=== PATIENT | male | born 1940 | race Caucasian/White ===

== ENCOUNTER 2018-11-13 02:41 | Emergency (ER) | payer MEDICARE ==
[~2018-11-13] VITALS: Ht 180.3 cm; Wt 77.2 kg
[~2018-11-13 02:41] MED LIST: ALLOPURINOL300 MG PO; ASPIRIN81 MG PO; ATORVASTATIN CA80 MG PO; CLOPIDOGREL75 MG PO; LISINOPRIL5 MG PO; METOPROL TAR25 MG PO; [UNRECOGNIZED DRUG - OTHER] PO
[2018-11-13 03:15] LABS: HEMATOCRIT 39.7 % (39.0-50.0); HEMOGLOBIN 13.5 g/dl (14.0-18.0); IMMATURE GRANULOCYTES 0.4 % (0.0-5.0); MEAN CELL VOLUME 89.6 fL CALC (80.0-100.0); MEAN CORPUSCULAR HGB 30.5 pG CALC (26.0-32.0); NEUT# 14.88 thou/uL (1.82-7.42); RED BLOOD COUNT 4.43 mill/uL (4.70-6.10); RED CELL DISTRI WIDTH 13.8 % (11.5-15.5)
[2018-11-13 03:31] LABS: ALBUMIN 4.1 g/dL (3.2-5.0); ALKALINE PHOSPHATASE 125 u/l (38-126); ANION GAP 14 (6-22 (CALC)); BILIRUBIN, TOTAL 1.4 mg/dL (0.0-1.4); BUN 18 mg/dL (8-23); BUN/CREATININE RATIO 19 (12-20 (CALC)); CARBON DIOXIDE 26 mmol/l (22-30); CHLORIDE 102 mmol/l (95-108); CREATININE 0.9 mg/dL (0.7-1.3); GFR > 60 ML/MIN (>=60 (CALC)); GFR FOR AFR.AMER. > 60 ML/MIN (>=60 (CALC)); POTASSIUM 4.3 mmol/l (3.5-5.1); SGOT/AST 24 u/l (19-48); SODIUM 138 mmol/l (137-146); TOTAL PROTEIN 6.6 g/dL (6.3-8.2)
[2018-11-13 03:44] LABS: MYOGLOBIN 34 ng/mL (0 - 121)
[2018-11-13 04:59] LABS: URINE BILIRUBIN - DIPSTICK NEGATIVE (NEGATIVE); URINE BLOOD DIPSTICK NEGATIVE (NEGATIVE); URINE COLOR YELLOW; URINE GLUCOSE - DIPSTICK NEGATIVE (NEGATIVE); URINE KETONE NEGATIVE (NEGATIVE); URINE LEUK ESTERASE NEGATIVE (NEGATIVE); URINE NITRITE - DIPSTICK NEGATIVE (Negative); URINE PH 5.5 (4.5-8.0); URINE PROTEIN - DIPSTICK NEGATIVE (NEG-TRACE); URINE SPECIFIC GRAVITY 1.025; URINE UROBILINOGEN - DIPSTICK 0.2 E.U./dL (0.2)
[2018-11-13] MEDS ORDERED: CIPROFLOXACN500 MG PO (05:33)
[2018-11-13 06:00] VITALS: BP 114/59
== END 2018-11-13 06:00 | disposition home or self-care (01) ==
LOC: ED 02:41
PROVIDERS: Emergency Medicine
DX: D72.829 Elevated white blood cell count, unspecified (principal); R42 Dizziness and giddiness; I10 Essential (primary) hypertension; I25.10 Atherosclerotic heart disease of native coronary artery without angina pectoris; Z95.5 Presence of coronary angioplasty implant and graft
CPT/HCPCS: J1956

== ENCOUNTER 2021-10-01 00:55 | Emergency (ER) | payer MEDICARE ==
[~2021-10-01] VITALS: Ht 180.3 cm; Wt 88.0 kg
[~2021-10-01 00:55] MED LIST changes: +CIPROFLOXACN500 MG PO
[2021-10-01] MEDS ORDERED: VALSARTAN160 MG PO (01:21)
[2021-10-01] MEDS ORDERED: NORVASC2.5 M1 PO (01:21)
[2021-10-01 01:27] LABS: HEMATOCRIT 41.7 % (39.0-50.0); HEMOGLOBIN 14.2 g/dl (14.0-18.0); IMMATURE GRANULOCYTES 0.1 % (0.0-5.0); MEAN CELL VOLUME 88.9 fL CALC (80.0-100.0); MEAN CORPUSCULAR HGB 30.3 pG CALC (26.0-32.0); MEAN CORPUSCULAR HGB CONC 34.1 g/dL CAL (32.0-36.0); NEUT# 5.69 thou/uL (1.82-7.42); RED BLOOD COUNT 4.69 mill/uL (4.70-6.10); RED CELL DISTRI WIDTH 14.3 % (11.5-15.5)
[2021-10-01 01:44] LABS: ALBUMIN 4.3 g/dL (3.2-5.0); ALKALINE PHOSPHATASE 132 u/l (38-126); AMYLASE 77 u/l (30-110); ANION GAP 13 (6-22 (CALC)); BILIRUBIN, TOTAL 0.7 mg/dL (0.0-1.4); BUN 18 mg/dL (8-23); BUN/CREATININE RATIO 19 (12-20 (CALC)); CARBON DIOXIDE 27 mmol/l (22-30); CHLORIDE 100 mmol/l (95-108); GFR > 60 ML/MIN (>=60 (CALC)); GFR FOR AFR.AMER. > 60 ML/MIN (>=60 (CALC)); LIPASE 104 u/l (23-300); SGOT/AST 32 u/l (19-48); SODIUM 136 mmol/l (137-146); TOTAL PROTEIN 7.2 g/dL (6.3-8.2)
[2021-10-01 01:55] LABS: D-DIMER 0.69 mg/L (0.19-0.60)
[2021-10-01 01:56] LABS: MYOGLOBIN 94 ng/mL (0 - 121)
[2021-10-01 02:02] LABS: ACT PARTIAL THROMBO TIME 25.7 SECONDS (20.0-32.5); INTERNATIONAL NORMALIZED RATIO 1.1 RATIO (0.7-1.3); PROTHROMBIN TIME 11.1 SECONDS (9.0-12.5)
[2021-10-01 02:44] VITALS: BP 123/64
== END 2021-10-01 02:47 | disposition short-term general hospital (02) ==
LOC: ED 00:55
PROVIDERS: Family Medicine
DX: I21.3 ST elevation (STEMI) myocardial infarction of unspecified site (principal); Z95.5 Presence of coronary angioplasty implant and graft
CPT/HCPCS: J1644

== ENCOUNTER 2021-11-25 16:17 | Emergency (ER) | payer MEDICARE ==
[~2021-11-25] VITALS: Ht 180.3 cm; Wt 100.0 kg
[2021-11-25] VITALS (39 sets, daily range): BP systolic 63–116; BP diastolic 45–67
[~2021-11-25 16:17] MED LIST changes: +NORVASC2.5 M1 PO; +VALSARTAN160 MG PO
[2021-11-25 16:46] LABS: HEMATOCRIT 40.8 % (39.0-50.0); IMMATURE GRANULOCYTES 0.2 % (0.0-5.0); MEAN CELL VOLUME 92.3 fL CALC (80.0-100.0); MEAN CORPUSCULAR HGB 29.4 pG CALC (26.0-32.0); MEAN CORPUSCULAR HGB CONC 31.9 g/dL CAL (32.0-36.0); NEUT# 11.75 thou/uL (1.82-7.42); RED BLOOD COUNT 4.42 mill/uL (4.70-6.10); RED CELL DISTRI WIDTH 14.9 % (11.5-15.5)
[2021-11-25] MEDS ORDERED: TOPROL XL25 M1 PO (16:46)
[2021-11-25] MEDS ORDERED: PROTONIX40 M2 PO (16:46)
[2021-11-25] MEDS ORDERED: LISINOPRIL2.5 MG PO (16:47)
[2021-11-25] MEDS ORDERED: KLOR-CON M2020 MEQ PO (16:49)
[2021-11-25] MEDS ORDERED: SPIRONOLACT25 MG PO (16:49)
[2021-11-25] MEDS ORDERED: CORDARONE/200 MG/TAB PO (16:50)
[2021-11-25] MEDS ORDERED: FUROSEMIDE20 MG PO (16:51)
[2021-11-25 17:06] LABS: ALBUMIN 3.5 g/dL (3.2-5.0); ALKALINE PHOSPHATASE 194 u/l (38-126); ANION GAP 15 (6-22 (CALC)); BILIRUBIN, TOTAL 0.7 mg/dL (0.0-1.4); BUN 48 mg/dL (8-23); BUN/CREATININE RATIO 37 (12-20 (CALC)); CARBON DIOXIDE 20 mmol/l (22-30); CHLORIDE 104 mmol/l (95-108); CREATININE 1.3 mg/dL (0.7-1.3); GFR 53 ML/MIN (>=60 (CALC)); GFR FOR AFR.AMER. > 60 ML/MIN (>=60 (CALC)); POTASSIUM 4.9 mmol/l (3.5-5.1); SGOT/AST 30 u/l (19-48); SODIUM 134 mmol/l (137-146); TOTAL PROTEIN 6.1 g/dL (6.3-8.2)
== END 2021-11-25 20:01 | disposition short-term general hospital (02) ==
LOC: ED 16:17
PROVIDERS: Family Medicine
PROC: 0T9B70Z Drainage of Bladder with Drainage Device, Via Natural or Artificial Opening (ICD-10-PCS; principal; 2021-11-25)
PROC: 06HY33Z Insertion of Infusion Device into Lower Vein, Percutaneous Approach (ICD-10-PCS; 2021-11-25)
DX: I11.0 Hypertensive heart disease with heart failure (principal); I50.9 Heart failure, unspecified; Z95.1 Presence of aortocoronary bypass graft; Z95.5 Presence of coronary angioplasty implant and graft; Z20.822 Contact with and (suspected) exposure to COVID-19

== ENCOUNTER 2021-12-30 21:54 | Observation (INO) | payer MEDICARE ==
[2021-12-30] VITALS (12 sets, daily range): BP systolic 103–122; BP diastolic 51–61
[~2021-12-30] VITALS: Ht 180.3 cm; Wt 71.4 kg
[~2021-12-30 21:54] MED LIST changes: +CORDARONE/200 MG/TAB PO; +FUROSEMIDE20 MG PO; +KLOR-CON M2020 MEQ PO; +LISINOPRIL2.5 MG PO; +PROTONIX40 M2 PO; +SPIRONOLACT25 MG PO; +TOPROL XL25 M1 PO
[2021-12-30 22:37] LABS: HEMATOCRIT 37.5 % (39.0-50.0); HEMOGLOBIN 11.8 g/dl (14.0-18.0); IMMATURE GRANULOCYTES 0.4 % (0.0-5.0); MEAN CELL VOLUME 87.6 fL CALC (80.0-100.0); MEAN CORPUSCULAR HGB 27.6 pG CALC (26.0-32.0); MEAN CORPUSCULAR HGB CONC 31.5 g/dL CAL (32.0-36.0); NEUT# 8.92 thou/uL (1.82-7.42); RED BLOOD COUNT 4.28 mill/uL (4.70-6.10); RED CELL DISTRI WIDTH 15.7 % (11.5-15.5)
[2021-12-30 22:58] LABS: ALBUMIN 3.9 g/dL (3.2-5.0); ALKALINE PHOSPHATASE 170 u/l (38-126); BILIRUBIN, TOTAL 0.6 mg/dL (0.0-1.4); BUN 35 mg/dL (8-23); BUN/CREATININE RATIO 29 (12-20 (CALC)); CHLORIDE 98 mmol/l (95-108); CREATININE 1.2 mg/dL (0.7-1.3); GFR FOR AFR.AMER. > 60 ML/MIN (>=60 (CALC)); GFR OTHER RACES 58 ML/MIN (>=60 (CALC)); POTASSIUM 4.7 mmol/l (3.5-5.1); SGOT/AST 24 u/l (19-48); SODIUM 134 mmol/l (137-146); TOTAL PROTEIN 6.9 g/dL (6.3-8.2)
[2021-12-30 22:59] LABS: ANION GAP 15 (6-22 (CALC)); CARBON DIOXIDE 26 mmol/l (22-30)
[2021-12-30 23:10] LABS: MYOGLOBIN 40 ng/mL (0 - 121)
[2021-12-31] VITALS (15 sets, daily range): BP systolic 104–123; BP diastolic 48–60
[2021-12-31 06:42] LABS: HEMATOCRIT 35.5 % (39.0-50.0); HEMOGLOBIN 11.2 g/dl (14.0-18.0); MEAN CELL VOLUME 88.1 fL CALC (80.0-100.0); MEAN CORPUSCULAR HGB 27.8 pG CALC (26.0-32.0); MEAN CORPUSCULAR HGB CONC 31.5 g/dL CAL (32.0-36.0); RED BLOOD COUNT 4.03 mill/uL (4.70-6.10); RED CELL DISTRI WIDTH 15.7 % (11.5-15.5)
[2021-12-31 07:01] LABS: ANION GAP 12 (6-22 (CALC)); BUN 29 mg/dL (8-23); BUN/CREATININE RATIO 31 (12-20 (CALC)); CALCULATED LDLCHOLESTEROL 29 mg/dL (62-129 (CALC)); CARBON DIOXIDE 24 mmol/l (22-30); CHLORIDE 103 mmol/l (95-108); CHOLESTEROL HDL RATIO 1.9 (<4.4 (CALC)); CREATININE 0.9 mg/dL (0.7-1.3); GFR FOR AFR.AMER. > 60 ML/MIN (>=60 (CALC)); GFR OTHER RACES > 60 ML/MIN (>=60 (CALC)); HDL CHOLESTEROL 47 mg/dL (>=40); MAGNESIUM 2.1 mg/dL (1.6-2.3); POTASSIUM 4.3 mmol/l (3.5-5.1); SODIUM 134 mmol/l (137-146); TOTAL CHOLESTEROL 92 mg/dl (0-199); TOTAL TRIGLYCERIDES 79 mg/dl (30-149); VLDL CHOLESTROL 16 mg/dl (0-38 (CALC))
[2021-12-31] MEDS ORDERED: ATORVASTATIN CA80 MG PO (09:57)
[2021-12-31] MEDS ORDERED: FARXIGA10 MG PO (09:57)
[2021-12-31] MEDS ORDERED: DIGOXIN0.125 MG PO (09:58)
[2021-12-31] MEDS ORDERED: QUNOL COQ10/UB100 MG PO (09:59)
[2021-12-31] MEDS ORDERED: XARELTO20 MG PO (10:00)
[2021-12-31] MEDS ORDERED: VERQUVO10 MG PO (10:00)
== END 2021-12-31 14:22 | disposition home or self-care (01) ==
LOC: ED 21:54 → ED-I 23:50 → ED 12-31 00:10 → MS2 12-31 00:11
PROVIDERS: Emergency Medicine; ADMIT Hospitalist; ATTEND Hospitalist
DX: R07.9 Chest pain, unspecified (principal); I25.10 Atherosclerotic heart disease of native coronary artery without angina pectoris; I50.22 Chronic systolic (congestive) heart failure; Z95.1 Presence of aortocoronary bypass graft; Z86.718 Personal history of other venous thrombosis and embolism; Z86.711 Personal history of pulmonary embolism; Z95.810 Presence of automatic (implantable) cardiac defibrillator; Z95.5 Presence of coronary angioplasty implant and graft; Z79.01 Long term (current) use of anticoagulants; Z20.822 Contact with and (suspected) exposure to COVID-19
CPT/HCPCS: G0378